=== PATIENT | male | born 1990 | race Caucasian/White ===

== ENCOUNTER 2022-06-24 17:05 | Emergency (ER) | payer SELFPAY ==
[~2022-06-24] VITALS: Ht 182.9 cm; Wt 73.9 kg
[2022-06-24 17:14] VITALS: BP 116/70
--- NOTE | 2022-06-24 17:27 | NUR ---
Patient ambultaed to bed 03 with staeady/even gait.
[2022-06-24] MEDS ORDERED: KETOROLAC 15 MG/ML VIAL IM ONE (17:30)
--- NOTE | 2022-06-24 17:30 | NUR ---
Dr. Land evaluating patient at bedside
--- NOTE | 2022-06-24 17:35 | NUR ---
Patient wheelchair assisted to RAD.
--- NOTE | 2022-06-24 17:40 | NUR ---
32 y/o M BIB self from home c/o left hand and wrist pain s/p mechanical slip and fall at home. Patient with left wrist and hand pain; 8/10, sharp/throbbing/constant, non-radiating. Worsens with movement. +PMSC intact; denies loss of sensation, numbness, tingling to left hand/wrist. States OTC meds with minor relief to symptoms. Denies LOC. Bed locked in lowest position, side rails x 1. PMH/Sx/Meds: Denies NKDA
[2022-06-24] MEDS ORDERED: KETAMINE 500 MG/5 ML VIAL IVP ONE (18:25)
[2022-06-24] MEDS ORDERED: NACL 0.9% 1,000 ML IV ONE (18:25)
--- NOTE | 2022-06-24 19:18 | NUR ---
Report and transfer of care endorsed to DENISHA Ba.
--- NOTE | 2022-06-24 19:32 | NUR ---
ASSISTED ER STAFF WITH CONCIOUS SEDATION MEASURES. ETCO2 SET UP, SUCTION WITH [place] READY, O2 VIA NRB ON STANDBY, BVM ON STANDBY. PT TOLERATES PROCEDURE WELL, VITALS REMAIN STABLE, NO EXTRA MEASURES TAKEN.
--- NOTE | 2022-06-24 19:34 | NUR ---
Conscious sedation administration started, RT, RN, ER Physician present. Patient is stable, no signs of distress. Addendum: 06/24/22 at 2102 by [email or web address] Conscious sedation administration started, RT, RN, ER Physician present. Patient is on monitor, stable, no signs of distress.
--- NOTE | 2022-06-24 19:36 | NUR ---
Dr. Land examining patient.
--- NOTE | 2022-06-24 19:39 | NUR ---
Dr Land performing closed fracture reduction, no s/s of distress from patient, patient stable. Addendum: 06/24/22 at [email or web address] Land performing closed fracture reduction, no s/s of distress from patient, patient stable and on monitor.
--- NOTE | 2022-06-24 19:39 | NUR ---
Conscious sedation administration ended, RT, RN, ER Physician present. Patient is stable, no signs of distress. Addendum: 06/24/22 at 2102 by [email or web address] Conscious sedation administration ended, RT, RN, ER Physician present. Patient is on monitor, stable, no signs of distress.
--- NOTE | 2022-06-24 19:49 | NUR ---
Patient Awake, A/Ox4, chest rise and fall symmetrical, no c/o pain or s/s of distress. Addendum: 06/24/22 at 2103 by [email or web address] Patient Awake, A/Ox4, on monitor, chest rise and fall symmetrical, no c/o pain or s/s of distress.
--- NOTE | 2022-06-24 19:55 | NUR ---
X-Ray at bedside.
--- NOTE | 2022-06-24 20:04 | NUR ---
Patient Awake, A/Ox4, chest rise and fall symmetrical, no c/o pain or s/s of distress. Addendum: 06/24/22 at 2104 by [email or web address] Patient Awake, A/Ox4, on monitor, chest rise and fall symmetrical, no c/o pain or s/s of distress.
--- NOTE | 2022-06-24 20:11 | NUR ---
PT LT ARM PLACED IN ORTHOGLASS SUGARTONG SPLINT. PT SENSORY AND MOTOR FUNCTIONS WNL BEFORE AND AFTER SPLINT APPLICATION. SPLINT SECURED WITH ACEWRAPS AND PADDING FOR COMFORT. PT ARM SECURED IN SHOULDER IMMOBILIZER.
--- NOTE | 2022-06-24 20:19 | NUR ---
Patient Awake, A/Ox4, chest rise and fall symmetrical, no c/o pain or s/s of distress. Addendum: 06/24/22 at 2104 by [email or web address] Patient Awake, A/Ox4, on monitor, chest rise and fall symmetrical, no c/o pain or s/s of distress.
--- NOTE | 2022-06-24 20:34 | NUR ---
Patient Awake, A/Ox4, chest rise and fall symmetrical, no c/o pain or s/s of distress. Addendum: 06/24/22 at 2104 by [email or web address] Patient Awake, A/Ox4, on monitor, chest rise and fall symmetrical, no c/o pain or s/s of distress.
[2022-06-24] MEDS ORDERED: IBUP-2213 PO (20:51)
[2022-06-24 21:04] VITALS: BP 124/85
--- NOTE | 2022-06-24 21:06 | NUR ---
Prior to discharge, patient demonstrated ability to safely ambulate 25 feet. Patient discharged with v/s stable. Written and verbal after care instructions given and explained. Patient alert, oriented and verbalized understanding of instructions. Ambulatory with steady gait. All questions addressed prior to discharge. ID band removed. Patient advised to follow up with PMD. Rx given to patient. Patient educated on indication of medication including possible reaction and side effects. Opportunity to ask questions provided and answered. Addendum: 06/24/22 at 2113 by [email or web address] Prior to discharge, patient demonstrated ability to safely ambulate 25 feet. Patient discharged with v/s stable. Written and verbal after care instructions given and explained. Patient alert, oriented and verbalized understanding of instructions. Ambulatory with steady gait. All questions addressed prior to discharge. ID band removed. Patient advised to follow up with PMD. XRAY CD and Rx given to patient. Patient educated on indication of medication including possible reaction and side effects. Opportunity to ask questions provided and answered.
== END 2022-06-24 21:06 | disposition home or self-care (01) ==
LOC: MED 17:05 → EDBD 17:05 → MED 19:11
DX: S52.532A Colles' fracture of left radius, initial encounter for closed fracture (principal); W18.30XA Fall on same level, unspecified, initial encounter; Y93.89 Activity, other specified; Y92.89 Other specified places as the place of occurrence of the external cause; Y99.8 Other external cause status
CPT/HCPCS: 25605; 73110; 73130; 96361; 96374; 99285; G0500; J1885; J7030

== ENCOUNTER 2023-03-07 10:45 | Emergency (ER) | payer MEDICAID ==
[~2023-03-07] VITALS: Ht 177.8 cm; Wt 78.9 kg
[~2023-03-07 10:45] MED LIST: IBUP-2213 PO
[2023-03-07 10:52] VITALS: BP 131/69; PULSE 91; RESP 20; TEMP 98.4; O2SAT 100
[2023-03-07] MEDS ORDERED: KETOROLAC 30 MG/ML VIAL IM ONE (11:50)
--- NOTE | 2023-03-07 11:59 | NUR ---
PT GIVEN URINE SPECIMEN CUP, AMBULATED TO BATHROOM AT THIS TIME
[2023-03-07 12:16] LABS: APPEARANCE,URINE CLEAR (CLEAR); BILIRUBIN,URINE NEGATIVE (NEGATIVE); BLOOD, URINE NEGATIVE (NEGATIVE); COLOR,URINE YELLOW (YELLOW); LEUKOCYTE ESTERASE ,URINE NEGATIVE (NEGATIVE); NITRITE, URINE NEGATIVE (NEGATIVE); UGLUCOSE NEGATIVE (NEGATIVE)
[2023-03-07 12:18] LABS: BASOPHILS % (AUTO) 0.4 % (0.0-2.0); EOSINOPHILS % (AUTO) 0.2 % (0.0-4.0); HEMATOCRIT 46.3 % (36-52); HEMOGLOBIN 15.2 g/dL (12.0-18.0); LYMPHOCYTES # (AUTO) 1.6 K/uL (2.0-11.5); LYMPHOCYTES % (AUTO) 20.5 % (20.5-51.1); MEAN CORPUSCULAR HEMOGLOBIN 28 pg (27-31); MEAN CORPUSCULAR HGB CONC 33 g/dL (33-37); MEAN CORPUSCULAR VOLUME 86.3 fL (80-94); MONOCYTES # (AUTO) 0.6 K/uL (0.8-1.0); MONOCYTES % (AUTO) 7.6 % (1.7-9.3); NEUTROPHILS # (AUTO) 5.7 K/uL (1.8-7.7); NEUTROPHILS % (AUTO) 71.3 % (42.2-75.2); PLATELET COUNT (AUTO) 252 K/uL (140-450); RED BLOOD CELL COUNT(AUTO) 5.36 MIL/uL (4.20-6.10); RED CELL DISTRIBUTION WIDTH 13.5 % (11.6-13.7)
[2023-03-07 12:32] LABS: ALBUMIN 4.4 g/dL (3.4-5.0); ANION GAP 11.8 (8-16); CREATININE 0.9 mg/dL (0.6-1.3); POTASSIUM 3.8 mmol/L (3.5-5.1); TOTAL BILIRUBIN 0.6 mg/dL (0.0-1.0)
--- NOTE | 2023-03-07 12:34 | NUR ---
pt jose t radiology for CT scan
[2023-03-07] MEDS ORDERED: IBUP-2213 PO (13:23)
[2023-03-07] MEDS ORDERED: CYCL-711 PO (13:23)
[2023-03-07] MEDS ORDERED: FAMO-90 PO (13:23)
[2023-03-07 13:38] VITALS: BP 131/69; PULSE 91; RESP 20; TEMP 98.4; O2SAT 100
--- NOTE | 2023-03-07 13:38 | NUR ---
Patient discharged with v/s stable. Written and verbal after care instructions given and explained. Patient alert, oriented and verbalized understanding of instructions. Ambulatory with steady gait. All questions addressed prior to discharge. ID band removed. Patient advised to follow up with PMD. Rx of CYCLOBENZAPRINE, PEPCID, IBUPROFEN (SENT) given. Patient educated on indication of medication including possible reaction and side effects. Opportunity to ask questions provided and answered.
== END 2023-03-07 13:38 | disposition home or self-care (01) ==
LOC: MED 10:45 → EDBD 10:45 → MED 13:38
DX: R10.9 Unspecified abdominal pain (principal); R03.0 Elevated blood-pressure reading, without diagnosis of hypertension; Z79.899 Other long term (current) drug therapy
CPT/HCPCS: 36415; 74176; 80053; 81003; 83690; 85025; 96372; 99285; J1885